=== PATIENT | male | born 1945 | race African-American/Black ===

== ENCOUNTER 2016-08-26 17:06 | Inpatient (IN) | payer MEDICARE ==
[~2016-08-26] VITALS: Ht 182.9 cm; Wt 73.5 kg
[2016-08-26 16:30] VITALS: BP 149/67
[~2016-08-26 17:06] MED LIST: ASPI81TA2 PO
[2016-08-26 17:35] VITALS: BP 149/67
[2016-08-26 19:00] VITALS: BP 115/73
[2016-08-26] MEDS ORDERED: BISACODYL 5MG TABLET PO PRN (20:45)
[2016-08-26] MEDS ORDERED: CLONIDINE 0.1MG TABLET PO PRN (20:45)
[2016-08-26] MEDS ORDERED: IPRATROPIUM/ALBUTEROL 0.5-3(2.5)MG/3ML NEB HHN PRN (20:45)
[2016-08-26] MEDS ORDERED: ONDANSETRON HCL 4MG/2ML VIAL IV PRN (20:45)
[2016-08-26] MEDS ORDERED: HYDROCODONE/ACETAMINOPHEN 5/325MG TABLET PO PRN (20:45)
[2016-08-26] MEDS ORDERED: MAGNESIUM/ALUMINUM HYDROXIDE/SIMETHICONE 30ML UDC PO PRN (20:45)
[2016-08-26] MEDS ORDERED: DIPHENHYDRAMINE 50MG/ML VIAL IV PRN (21:03)
[2016-08-26] MEDS ORDERED: NA PHOS,M-B/NA PHOS,DI-BA ENEMA 118ML PR PRN (21:03)
[2016-08-26] MEDS ORDERED: ACETAMINOPHEN 650MG SUPP PR PRN (21:03)
[2016-08-26] MEDS: SODIUM CHLORIDE 0.9% INJ 3ML FLUSH IVF SCH (22:14)
[2016-08-27 00:35] LABS: CLARITY URINE CLEAR (CLEAR); COLOR URINE YELLOW (YELLOW); GLUCOSE URINE NEGATIVE (NEGATIVE); KETONES URINE NEGATIVE (NEGATIVE); LEUKOCYTE ESTERASE URINE NEGATIVE (NEGATIVE); NITRITE URINE NEGATIVE (NEGATIVE); OCCULT BLOOD URINE 3+ (NEGATIVE); PROTEIN URINE NEGATIVE (NEGATIVE); SPECIFIC GRAVITY URINE 1.008 (1.005-1.030); UROBILINOGEN URINE 0.2 E.U./dL (0.2-1.0)
[2016-08-27 00:37] LABS: BACTERIA URINE NONE SEEN; CALCIUM PHOSPHATE CRYSTALS UR NONE SEEN /lpf; SQUAMOUS EPITHELIAL CELL URINE NONE SEEN /lpf (RARE/1+); WAXY CASTS URINE NONE SEEN /lpf; WBC URINE 0-2 /hpf (0-2); YEAST URINE NONE SEEN
[2016-08-27] MEDS ORDERED: CEFTRIAXONE 1 G PREMIX 50 ML IV SCH (01:00)
[2016-08-27] MEDS: SODIUM CHLORIDE 0.9% INJ 3ML FLUSH IVF SCH ×2 (05:11→13:54)
[2016-08-27 06:44] LABS: BASOPHILS % 0.5 % (0.0-2.0); EOSINOPHILS % 1.3 % (0.0-5.0); HEMATOCRIT. 33.5 % (42.0-52.0); HEMOGLOBIN. 11.2 g/dL (14.0-18.0); LYMPHOCYTES % 9.1 % (20.0-50.0); MEAN CORPUSCULAR HEMOGLOBIN 28.1 pg (28.0-32.0); MEAN CORPUSCULAR HGB CONC 33.5 g/dL (31.0-37.0); MONOCYTES % 8.5 % (2.0-8.0); NEUTROPHILS % 80.6 % (40.0-76.0); PLATELET 332 x1000/uL (130-400); RED BLOOD CELL COUNT 3.98 mill/uL (4.7-6.1); RED CELL DISTRIBUTION WIDTH 13.6 % (11.6-14.6); WHITE BLOOD COUNT 7.8 x1000/uL (4.5-11.0)
[2016-08-27 07:28] LABS: PROSTRATE SPECIFIC AG TOTAL 1.61 ng/mL (0.0-4.0)
[2016-08-27 07:33] LABS: ALANINE AMINOTRANSFERASE 42 IU/L (13-61); ALBUMIN 1.9 g/dL (3.4-5.0); ANION GAP 13; CARBON DIOXIDE 28 mEq/L (21-32); CHLORIDE 101 mEq/L (98-107); CREATINE KINASE 97 IU/L (39-308); INDEX HEMOLYSI 1 (1-3); INDEX ICTERIC 1 (1-4); INDEX LIPEMIC 1 (1-3); PHOSPHORUS 2.9 mg/dL (2.5-4.9); PREALBUMIN 8.1 mg/dL (20.0-40.0); UREA NITROGEN BLOOD 13 mg/dL (7-21); eGFR > 60 mL/min (>60)
[2016-08-27 08:00] VITALS: BP 110/69
[2016-08-27] MEDS ORDERED: DOCUSATE SODIUM 100MG CAPSULE PO SCH (09:00)
[2016-08-27] MEDS ORDERED: METHYLPREDNISOLONE SOD SUCC 40 MG/ML VIAL IV NR (09:15)
[2016-08-27] MEDS ORDERED: COLCHICINE 0.6MG TABLET PO SCH (09:15)
[2016-08-27] MEDS: ASPIRIN 81MG TABLET PO SCH (09:54)
[2016-08-27] MEDS: ENOXAPARIN 40MG/0.4ML SYR SUBCUT SCH (09:54)
[2016-08-27] MEDS ORDERED: ZINC SULFATE 220 MG ( 50 ) CAPSULE PO NR (17:58)
[2016-08-27 20:00] VITALS: BP 108/59
[2016-08-28 08:00] VITALS: BP 101/58
[2016-08-28] MEDS ORDERED: PREDNISONE 20MG TABLET PO SCH (09:00)
[2016-08-28] MEDS: ASPIRIN 81MG TABLET PO SCH (09:50)
[2016-08-28] MEDS: ENOXAPARIN 40MG/0.4ML SYR SUBCUT SCH (09:50)
[2016-08-28] MEDS: ASCORBIC ACID 500 MG TABLET PO SCH (09:51)
[2016-08-28] MEDS: SODIUM CHLORIDE 0.9% INJ 3ML FLUSH IVF SCH ×3 (09:51→22:31)
[2016-08-28 10:05] LABS: CLARITY URINE CLOUDY (CLEAR); COLOR URINE YELLOW (YELLOW); GLUCOSE URINE NEGATIVE (NEGATIVE); KETONES URINE NEGATIVE (NEGATIVE); LEUKOCYTE ESTERASE URINE NEGATIVE (NEGATIVE); NITRITE URINE NEGATIVE (NEGATIVE); OCCULT BLOOD URINE 1+ (NEGATIVE); PH URINE 5.5 (4.5-8.0); PROTEIN URINE NEGATIVE (NEGATIVE); SPECIFIC GRAVITY URINE 1.015 (1.005-1.030); UROBILINOGEN URINE 0.2 E.U./dL (0.2-1.0)
[2016-08-28 10:30] LABS: WBC URINE 0-2 /hpf (0-2)
[2016-08-28 10:31] LABS: BACTERIA URINE 1+; SQUAMOUS EPITHELIAL CELL URINE NONE SEEN /lpf (RARE/1+)
[2016-08-28 10:38] LABS: URIC ACID CRYSTALS URINE 1+ /lpf
[2016-08-28] MEDS ORDERED: DEXTROSE 50% WATER 50ML SYRINGE IV PRN (13:45)
[2016-08-28] MEDS: BLOOD SUGAR DIAGNOSTIC STRIP TEST SCH ×2 (16:44→21:00)
[2016-08-28] MEDS: INSULIN LISPRO 100 UNITS/ML SUBCUT SCH ×2 (16:44→21:00)
[2016-08-28 20:00] VITALS: BP 105/67
[2016-08-29] MEDS: INSULIN LISPRO 100 UNITS/ML SUBCUT SCH ×4 (07:02→21:00)
[2016-08-29] MEDS: BLOOD SUGAR DIAGNOSTIC STRIP TEST SCH ×4 (07:02→21:44)
[2016-08-29] MEDS: SODIUM CHLORIDE 0.9% INJ 3ML FLUSH IVF SCH ×3 (07:02→21:45)
[2016-08-29 08:00] VITALS: BP 105/65
[2016-08-29] MEDS ORDERED: PREDNISONE 20MG TABLET PO SCH ×2 (09:00→15:58)
[2016-08-29] MEDS: ASCORBIC ACID 500 MG TABLET PO SCH (09:21)
[2016-08-29] MEDS: ASPIRIN 81MG TABLET PO SCH (09:21)
[2016-08-29] MEDS: ENOXAPARIN 40MG/0.4ML SYR SUBCUT SCH (09:22)
[2016-08-29] MEDS: PREDNISONE 10MG TABLET PO SCH (17:59)
[2016-08-29 20:00] VITALS: BP 122/68
[2016-08-30 05:56] LABS: BASOPHILS % 0.2 % (0.0-2.0); EOSINOPHILS % 0.1 % (0.0-5.0); HEMATOCRIT. 31.4 % (42.0-52.0); HEMOGLOBIN. 10.3 g/dL (14.0-18.0); LYMPHOCYTES % 10.1 % (20.0-50.0); MEAN CORPUSCULAR HEMOGLOBIN 27.7 pg (28.0-32.0); MEAN CORPUSCULAR HGB CONC 32.7 g/dL (31.0-37.0); MEAN CORPUSCULAR VOLUME 84.8 fL (80.0-94.0); MEAN PLATELET VOLUME 9.3 fl (7.4-10.4); NEUTROPHILS % 83.6 % (40.0-76.0); PLATELET 331 x1000/uL (130-400); RED CELL DISTRIBUTION WIDTH 13.7 % (11.6-14.6); WHITE BLOOD COUNT 7.7 x1000/uL (4.5-11.0)
[2016-08-30 06:00] LABS: ALANINE AMINOTRANSFERASE 51 IU/L (13-61); ANION GAP 14; CARBON DIOXIDE 29 mEq/L (21-32); CHLORIDE 100 mEq/L (98-107); INDEX HEMOLYSI 1 (1-3); INDEX ICTERIC 1 (1-4); INDEX LIPEMIC 1 (1-3); PHOSPHORUS 2.9 mg/dL (2.5-4.9); URIC ACID 4.6 mg/dL (2.6-7.2); eGFR > 60 mL/min (>60)
[2016-08-30] MEDS: SODIUM CHLORIDE 0.9% INJ 3ML FLUSH IVF SCH ×3 (06:19→22:31)
[2016-08-30] MEDS: BLOOD SUGAR DIAGNOSTIC STRIP TEST SCH ×4 (06:19→21:00)
[2016-08-30 06:45] LABS: ALBUMIN 2.1 g/dL (3.4-5.0); CALCIUM 8.3 mg/dL (8.5-10.1); UREA NITROGEN BLOOD 21 mg/dL (7-21)
[2016-08-30 08:00] VITALS: BP 101/56
[2016-08-30] MEDS: INSULIN LISPRO 100 UNITS/ML SUBCUT SCH ×4 (09:00→22:33)
[2016-08-30] MEDS: ASPIRIN 81MG TABLET PO SCH (09:22)
[2016-08-30] MEDS: ASCORBIC ACID 500 MG TABLET PO SCH (09:22)
[2016-08-30] MEDS: PREDNISONE 10MG TABLET PO SCH (09:22)
[2016-08-30] MEDS: ENOXAPARIN 40MG/0.4ML SYR SUBCUT SCH (09:23)
[2016-08-30] MEDS ORDERED: PREDNISONE 10MG TABLET PO SCH (13:00)
[2016-08-30 20:00] VITALS: BP 95/66
[2016-08-31] MEDS: BLOOD SUGAR DIAGNOSTIC STRIP TEST SCH ×4 (06:36→21:00)
[2016-08-31] MEDS: SODIUM CHLORIDE 0.9% INJ 3ML FLUSH IVF SCH ×3 (06:37→22:16)
[2016-08-31] MEDS ORDERED: BUPIVACAINE HCL/PF 0.5% (5MG/ML) 10ML INFIL SCH (06:45)
[2016-08-31] MEDS ORDERED: LIDOCAINE HCL 2% 5ML SYRINGE IV SCH (06:45)
[2016-08-31] MEDS ORDERED: DEXAMETHASONE 4MG/ML 1ML VIAL IV SCH (06:45)
[2016-08-31] MEDS ORDERED: TRIAMCINOLONE ACETONIDE 40MG/ML 1ML VIAL IM SCH (06:45)
[2016-08-31] MEDS ORDERED: ETHYL CHLORIDE CAN TOP SCH (06:45)
[2016-08-31] MEDS: INSULIN LISPRO 100 UNITS/ML SUBCUT SCH ×4 (06:58→22:15)
[2016-08-31 08:00] VITALS: BP 113/64
[2016-08-31] MEDS: ENOXAPARIN 40MG/0.4ML SYR SUBCUT SCH (08:48)
[2016-08-31] MEDS: ASCORBIC ACID 500 MG TABLET PO SCH (08:48)
[2016-08-31] MEDS: ASPIRIN 81MG TABLET PO SCH (08:48)
[2016-08-31] MEDS: PREDNISONE 20MG TABLET PO SCH (08:50)
[2016-08-31] MEDS ORDERED: LIDOCAINE HCL 1% 20ML VIAL (Pyxis) INJ INFIL NR (18:45)
[2016-08-31 20:00] VITALS: BP 112/57
[2016-09-01] MEDS: SODIUM CHLORIDE 0.9% INJ 3ML FLUSH IVF SCH ×3 (06:00→21:30)
[2016-09-01] MEDS: BLOOD SUGAR DIAGNOSTIC STRIP TEST SCH ×4 (06:20→20:45)
[2016-09-01] MEDS: INSULIN LISPRO 100 UNITS/ML SUBCUT SCH ×4 (06:20→21:00)
[2016-09-01 08:00] VITALS: BP 115/66
[2016-09-01] MEDS: ASCORBIC ACID 500 MG TABLET PO SCH (08:10)
[2016-09-01] MEDS: ASPIRIN 81MG TABLET PO SCH (08:11)
[2016-09-01] MEDS: PREDNISONE 20MG TABLET PO SCH (08:11)
[2016-09-01] MEDS: ENOXAPARIN 40MG/0.4ML SYR SUBCUT SCH (08:11)
[2016-09-01 20:00] VITALS: BP 108/58
[2016-09-02 05:49] LABS: ANION GAP 13; CALCIUM 8.8 mg/dL (8.5-10.1); CARBON DIOXIDE 30 mEq/L (21-32); CHLORIDE 102 mEq/L (98-107); INDEX HEMOLYSI 1 (1-3); INDEX ICTERIC 1 (1-4); INDEX LIPEMIC 1 (1-3); UREA NITROGEN BLOOD 18 mg/dL (7-21); URIC ACID 4.3 mg/dL (2.6-7.2); eGFR > 60 mL/min (>60)
[2016-09-02] MEDS: BLOOD SUGAR DIAGNOSTIC STRIP TEST SCH ×4 (06:30→21:00)
[2016-09-02 08:00] VITALS: BP 119/74
[2016-09-02] MEDS: PREDNISONE 10MG TABLET PO SCH (08:15)
[2016-09-02] MEDS: ASCORBIC ACID 500 MG TABLET PO SCH (08:15)
[2016-09-02] MEDS: ASPIRIN 81MG TABLET PO SCH (08:17)
[2016-09-02] MEDS: ENOXAPARIN 40MG/0.4ML SYR SUBCUT SCH (08:18)
[2016-09-02] MEDS: INSULIN LISPRO 100 UNITS/ML SUBCUT SCH ×4 (08:18→20:59)
[2016-09-02] MEDS: SODIUM CHLORIDE 0.9% INJ 3ML FLUSH IVF SCH ×2 (13:39→21:00)
[2016-09-02] MEDS ORDERED: POTASSIUM CHLORIDE 20MEQ TABLET SR PO NR (19:41)
[2016-09-02 20:00] VITALS: BP 101/66
[2016-09-02] MEDS ORDERED: ACETAMINOPHEN 325MG TABLET PO PRN (23:30)
[2016-09-02] MEDS ORDERED: ACETAMINOPHEN 650MG/20.3ML UDC GT PRN (23:30)
[2016-09-02] MEDS ORDERED: DOCUSATE SODIUM 100MG CAPSULE PO PRN (23:30)
[2016-09-02] MEDS ORDERED: DIPHENHYDRAMINE 50MG/ML VIAL IV PRN (23:30)
[2016-09-02] MEDS ORDERED: MAGNESIUM/ALUMINUM HYDROXIDE/SIMETHICONE 30ML UDC PO PRN (23:30)
[2016-09-02] MEDS ORDERED: ONDANSETRON HCL 4MG/2ML VIAL IV PRN (23:30)
[2016-09-02] MEDS ORDERED: ACETAMINOPHEN 650MG SUPP PR PRN (23:30)
[2016-09-02] MEDS ORDERED: HYDROCODONE/ACETAMINOPHEN 5/325MG TABLET PO PRN (23:30)
[2016-09-02] MEDS ORDERED: GUAIFENESIN 200MG/10ML SUGAR FREE UDC PO PRN (23:30)
[2016-09-02] MEDS ORDERED: NA PHOS,M-B/NA PHOS,DI-BA ENEMA 118ML PR PRN (23:30)
[2016-09-02] MEDS ORDERED: IPRATROPIUM/ALBUTEROL 0.5-3(2.5)MG/3ML NEB INH PRN (23:30)
[2016-09-03] MEDS ORDERED: SODIUM CHLORIDE 0.9% INJ 3ML FLUSH IVF SCH (06:00)
[2016-09-03] MEDS: BLOOD SUGAR DIAGNOSTIC STRIP TEST SCH ×4 (06:30→21:00)
[2016-09-03 09:00] VITALS: BP 108/64
[2016-09-03] MEDS ORDERED: ASPIRIN 81MG TABLET PO SCH (09:00)
[2016-09-03] MEDS: INSULIN LISPRO 100 UNITS/ML SUBCUT SCH ×2 (09:00→12:06)
[2016-09-03] MEDS: ASPIRIN 81MG TABLET PO SCH (09:35)
[2016-09-03] MEDS: ASCORBIC ACID 500 MG TABLET PO SCH (09:35)
[2016-09-03] MEDS: PREDNISONE 10MG TABLET PO SCH (09:36)
[2016-09-03] MEDS: ENOXAPARIN 40MG/0.4ML SYR SUBCUT SCH (09:45)
[2016-09-03 20:00] VITALS: BP 102/56
[2016-09-03] MEDS: ATORVASTATIN CALCIUM 10MG TABLET PO SCH (22:53)
[2016-09-04] MEDS: BLOOD SUGAR DIAGNOSTIC STRIP TEST SCH ×4 (06:45→21:00)
[2016-09-04 08:00] VITALS: BP 104/51
[2016-09-04] MEDS: ASPIRIN 81MG TABLET PO SCH (09:31)
[2016-09-04] MEDS: ASCORBIC ACID 500 MG TABLET PO SCH (09:32)
[2016-09-04] MEDS: PREDNISONE 10MG TABLET PO SCH (09:32)
[2016-09-04] MEDS: ENOXAPARIN 40MG/0.4ML SYR SUBCUT SCH (09:32)
[2016-09-04 20:00] VITALS: BP 102/68
[2016-09-04] MEDS: ATORVASTATIN CALCIUM 10MG TABLET PO SCH (22:11)
[2016-09-05] MEDS: BLOOD SUGAR DIAGNOSTIC STRIP TEST SCH ×4 (06:30→21:00)
[2016-09-05 08:00] VITALS: BP 107/60
[2016-09-05] MEDS: ENOXAPARIN 40MG/0.4ML SYR SUBCUT SCH (11:55)
[2016-09-05] MEDS: PREDNISONE 10MG TABLET PO SCH (11:55)
[2016-09-05] MEDS: ASCORBIC ACID 500 MG TABLET PO SCH (11:55)
[2016-09-05] MEDS: ASPIRIN 81MG TABLET PO SCH (11:55)
[2016-09-05] MEDS: ATORVASTATIN CALCIUM 10MG TABLET PO SCH (22:09)
[2016-09-06] MEDS: BLOOD SUGAR DIAGNOSTIC STRIP TEST SCH ×4 (07:01→20:58)
[2016-09-06 07:58] VITALS: BP 105/55
[2016-09-06] MEDS: ASPIRIN 81MG TABLET PO SCH (08:17)
[2016-09-06] MEDS: ASCORBIC ACID 500 MG TABLET PO SCH (08:17)
[2016-09-06] MEDS: ENOXAPARIN 40MG/0.4ML SYR SUBCUT SCH (08:17)
[2016-09-06 18:30] LABS: BASOPHILS % 0.4 % (0.0-2.0); EOSINOPHILS % 1.3 % (0.0-5.0); HEMATOCRIT. 32.4 % (42.0-52.0); HEMOGLOBIN. 10.4 g/dL (14.0-18.0); LYMPHOCYTES % 10.8 % (20.0-50.0); MEAN CORPUSCULAR HEMOGLOBIN 27.3 pg (28.0-32.0); MEAN CORPUSCULAR HGB CONC 32.2 g/dL (31.0-37.0); MEAN CORPUSCULAR VOLUME 84.6 fL (80.0-94.0); MEAN PLATELET VOLUME 7.7 fl (7.4-10.4); MONOCYTES % 7.2 % (2.0-8.0); NEUTROPHILS % 80.3 % (40.0-76.0); PLATELET 280 x1000/uL (130-400); RED BLOOD CELL COUNT 3.82 mill/uL (4.7-6.1); RED CELL DISTRIBUTION WIDTH 13.8 % (11.6-14.6); WHITE BLOOD COUNT 8.3 x1000/uL (4.5-11.0)
[2016-09-06 18:38] LABS: CHLORIDE 100 mEq/L (98-107); INDEX HEMOLYSI 1 (1-3); INDEX ICTERIC 1 (1-4); INDEX LIPEMIC 1 (1-3)
[2016-09-06 18:42] LABS: ANION GAP 13; CALCIUM 8.2 mg/dL (8.5-10.1); CARBON DIOXIDE 30 mEq/L (21-32); UREA NITROGEN BLOOD 18 mg/dL (7-21); eGFR > 60 mL/min (>60)
[2016-09-06 20:00] VITALS: BP 98/55
[2016-09-06] MEDS: ATORVASTATIN CALCIUM 10MG TABLET PO SCH (20:58)
[2016-09-07] MEDS: BLOOD SUGAR DIAGNOSTIC STRIP TEST SCH ×2 (07:11→11:13)
[2016-09-07 08:00] VITALS: BP 94/48
[2016-09-07] MEDS: ASCORBIC ACID 500 MG TABLET PO SCH (08:09)
[2016-09-07] MEDS: ASPIRIN 81MG TABLET PO SCH (08:09)
[2016-09-07] MEDS: ENOXAPARIN 40MG/0.4ML SYR SUBCUT SCH (08:10)
[2016-09-07 14:55] VITALS: BP 109/61
[2016-09-07 14:57] VITALS: BP 109/61
== END 2016-09-07 16:00 | disposition home health service (06) | DRG 70 ==
PROVIDERS: ADMIT Psychiatry & Neurology Neurology; ATTEND Family Medicine
PROC: 3E0U33Z Introduction of Anti-inflammatory into Joints, Percutaneous Approach (ICD-10-PCS; principal; 2016-08-31)
DX: G93.41 Metabolic encephalopathy (principal); E43 Unspecified severe protein-calorie malnutrition; K85.90 Acute pancreatitis without necrosis or infection, unspecified; N17.9 Acute kidney failure, unspecified; M62.82 Rhabdomyolysis; E87.0 Hyperosmolality and hypernatremia; E87.2 Acidosis; N39.0 Urinary tract infection, site not specified; N40.0 Benign prostatic hyperplasia without lower urinary tract symptoms; M10.9 Gout, unspecified; R29.6 Repeated falls; E11.9 Type 2 diabetes mellitus without complications; R26.9 Unspecified abnormalities of gait and mobility; L89.320 Pressure ulcer of left buttock, unstageable; L89.310 Pressure ulcer of right buttock, unstageable; L89.100 Pressure ulcer of unspecified part of back, unstageable; Z60.2 Problems related to living alone; L89.159 Pressure ulcer of sacral region, unspecified stage; M10.00 Idiopathic gout, unspecified site; M16.0 Bilateral primary osteoarthritis of hip; E87.6 Hypokalemia; E83.41 Hypermagnesemia; I10 Essential (primary) hypertension; M19.072 Primary osteoarthritis, left ankle and foot; M17.0 Bilateral primary osteoarthritis of knee; S99.822A Other specified injuries of left foot, initial encounter; L60.3 Nail dystrophy; L89.620 Pressure ulcer of left heel, unstageable; Z68.22 Body mass index [BMI] 22.0-22.9, adult
CPT/HCPCS: 36415; 73562; 73610; 80048; 80053; 80061; 81001; 82550; 82607; 82962; 84100; 84134; 84153; 84550; 85025; 92523; 93923; 97110; 97112; 97116; 97150; 97163; 97166; 97530; 97532; 97535; J0696; J1100; J1650; J1815; J2920; J3301; J3490; J7050; J7512